=== PATIENT | female | born 1995 | race Caucasian/White ===

== ENCOUNTER 2017-06-28 19:48 | Emergency (ER) | payer OTHER ==
[~2017-06-28] VITALS: Ht 167.6 cm; Wt 80.0 kg
--- NOTE | 2017-06-28 20:01 | ED.ADGEN ---
Adult General Chief Complaint Chief Complaint " I am vomiting so much.. my stomach hurts.. to point it hurts to take big breaths.. I just feel very distended.. I about 26 weeks... [facility]... I did almost have pre-eclampsia with my lst .. this one was placenta previa.. but it resolved..I just can't hardly keep anything down...".. " I worried I can't feel the baby kicking any more..." HPI HPI Patient is a 21 year old female who presents with nausea, vomiting , abd. pain and gravid x 26 weeks. Pt. states she vomited so many times to day .. that her chest hurts along her flanks. Pt. denies travel,bad food, ill contacts, or trauma. . Pt denies immunosuppression. Pt. has eaten today. Pt. called her mid level provider and they wanted her checked out for pre-eclampsia. Pt. with [facility] specialist clinic at [facility]. No vaginal discharge. Review of Systems Review of Systems Constitutional: Denies fever or chills [] Eyes: Denies change in visual acuity, redness, or eye pain [] HENT: Denies nasal congestion or sore throat [] Respiratory: Denies cough or shortness of breath [] Cardiovascular: No additional information not addressed in HPI [] GI: complaints of abdominal pain, nausea, vomiting. Denies, bloody stools or diarrhea [] : Denies dysuria or hematuria [] Musculoskeletal: Denies back pain or joint pain [] Integument: Denies rash or skin lesions [] Neurologic: Denies headache, focal weakness or sensory changes [] Endocrine: Denies polyuria or polydipsia [] All other systems were reviewed and found to be within normal limits, except as documented in this note. Family History Family History Non-contributory Current Medications Current Medications Current Medications Medications (Trade) Dose Ordered Sig/Margarette Start Time Stop Time Status Last Admin Dose Admin Famotidine (Pepcid Vial) 20 mg 1X ONCE 06/28/17 20:15 06/28/17 20:16 DC 06/28/17 21:22 20 MG Lactated Ringer's 1,000 ml @ 1,000 mls/hr 1X ONCE 06/28/17 22:00 06/28/17 22:59 DC 06/28/17 22:00 1,000 MLS/HR Magnesium Sulfate 50 ml @ 25 mls/hr 1X ONCE 06/28/17 20:15 06/28/17 22:14 DC 06/28/17 21:19 25 MLS/HR Ondansetron HCl (Zofran Odt) 8 mg 1X ONCE 06/28/17 20:15 06/28/17 20:16 DC Oxycodone/ Acetaminophen (Percocet 5/325) 1 tab 1X ONCE 06/28/17 20:15 06/28/17 20:16 DC 06/28/17 21:21 1 TAB Allergies Allergies Allergies Coded Allergies Type Severity Reaction Last Updated Verified No Known Drug Allergies 06/28/17 No Physical Exam Physical Exam Constitutional: Well developed, well nourished,moderately acute distress, non- toxic appearance. [] HENT: Normocephalic, atraumatic, bilateral external ears normal, oropharynx dry , no oral exudates, nose normal. [] Eyes: PERRLA, EOMI, conjunctiva normal, no discharge. [] Neck: Normal range of motion, no tenderness, supple, no stridor. [] Cardiovascular:Heart rate regular rhythm, no murmur [] Lungs & Thorax: Bilateral breath sounds clear to auscultation [] Abdomen: Bowel sounds normal, soft, no tenderness, no masses, no pulsatile masses. [] FHR 140's Skin: Warm, dry, no erythema, no rash. [] Back: No tenderness, no CVA tenderness. [] Extremities: No tenderness, no cyanosis, no clubbing, ROM intact, no edema. [] Neurologic: Alert and oriented X 3, normal motor function, normal sensory function, no focal deficits noted. []DTR + 2 patella. Psychologic: Affect anxious, judgement normal, mood normal. [] Current Patient Data Vital Signs Vital Signs Date Time Temp Pulse Resp B/P (MAP) Pulse Ox O2 Delivery O2 Flow Rate FiO2 06/28/17 23:13 89 18 134/73 (93) 98 Room Air 06/28/17 22:18 98.3 Lab Results Laboratory Tests Test 06/28/17 20:44 06/28/17 20:50 06/28/17 21:32 White Blood Count 10.5 x10^3/uL (4.0-11.0) Red Blood Count 3.94 x10^6/uL (3.50-5.40) Hemoglobin 12.2 g/dL (12.0-15.5) Hematocrit 34.6 % (36.0-47.0) L Mean Corpuscular Volume 88 fL (79-100) Mean Corpuscular Hemoglobin 31 pg (25-35) Mean Corpuscular Hemoglobin Concent 35 g/dL (31-37) Red Cell Distribution Width 12.8 % (11.5-14.5) Platelet Count 168 x10^3/uL (140-400) Neutrophils (%) (Auto) 71 % (31-73) Lymphocytes (%) (Auto) 19 % (24-48) L Monocytes (%) (Auto) 6 % (0-9) Eosinophils (%) (Auto) 4 % (0-3) H Basophils (%) (Auto) 0 % (0-3) Neutrophils # (Auto) 7.5 x10^3uL (1.8-7.7) Lymphocytes # (Auto) 2.0 x10^3/uL (1.0-4.8) Monocytes # (Auto) 0.6 x10^3/uL (0.0-1.1) Eosinophils # (Auto) 0.4 x10^3/uL (0.0-0.7) Basophils # (Auto) 0.0 x10^3/uL (0.0-0.2) Prothrombin Time 9.3 SEC (9.4-11.4) L Prothrombin Time INR 0.9 (0.9-1.1) PTT 24 SEC (23-33) Maternal Serum HCG Beta Subunit 4927 mIU/mL (0-6) H Troponin I Quantitative < 0.017 ng/mL (0-0.055) POC Urine HCG, Qualitative hcg positive (Negative) Urine Collection Type Unknown Urine Color Yellow Urine Clarity Clear Urine pH 5.5 Urine Specific [place] >=1.030 Urine Protein Neg (NEG-TRACE) Urine Glucose (UA) 100 mg/dL (NEG) Urine Ketones (Stick) Trace mg/dL (NEG) Urine Blood Neg (NEG) Urine Nitrite Neg (NEG) Urine Bilirubin Neg (NEG) Urine Urobilinogen Dipstick 0.2 mg/dL (0.2 mg/dL) Urine Leukocyte Esterase Neg (NEG) Urine RBC 0 /HPF (0-2) Urine WBC Occ /HPF (0-4) Urine Squamous Epithelial Cells Occ /LPF Urine Bacteria 0 /HPF (0-FEW) Urine Opiates Screen Neg (NEG) Urine Methadone Screen Neg (NEG) Urine Barbiturates Neg (NEG) Urine Phencyclidine Screen Neg (NEG) Urine Amphetamine/Methamphetamine Neg (NEG) Urine Benzodiazepines Screen Neg (NEG) Urine Cocaine Screen Neg (NEG) Urine Cannabinoids Screen Neg (NEG) Urine Ethyl Alcohol (NEG) EKG EKG [] Radiology/Procedures Radiology/Procedures US - IUP, no acute, FHR 140, 27w.4d[] SULEMAN 09/23/17. Active Course & Med Decision Making Course & Med Decision Making Pertinent Labs and Imaging studies reviewed. (See chart for details) Still awaiting electrolytes- I stat ordered 2100 Pt. refused eval. pulmonary cause of chest wall discomfort. Exhibit UCAR capacity. Aware of risks missed pulmonary causes, PE, ect. Pt. to push clear fluids. Take Reglan 5 to 10 with Benadryl 25 mg up 4 x day for severe nausea and vomiting. ( Reports allergy to Zofran.). Pt. may take tylenol for pain. Ave products may be helpful. Must follow up labs here with primary. Continue thuy. [] Final Impression Final Impression 1. [Hyper emesis gravidarum] 2. Mild dehydration 3. BHCG= 4927 4. A+ blood type 5. IUP 27w:4d by US- SULEMAN 09/23/2017 Problems: Dragon Disclaimer Dragon Disclaimer This electronic medical record was generated, in whole or in part, using a voice recognition dictation system. ROSE DOBBINS MD June 28, 2017 20:01
[2017-06-28] MEDS ORDERED: FAMOTIDINE 20 MG/2 ML VIAL IVP ONE (20:15)
[2017-06-28] MEDS ORDERED: ONDANSETRON ODT 4 MG TAB.RAPDIS PO ONE (20:15)
[2017-06-28] MEDS ORDERED: MAGNESIUM SULFATE 2GM 50 ML IV ONE (20:15)
[2017-06-28] MEDS ORDERED: oxyCODONE/APAP 5/325 1 TAB TABLET PO ONE (20:15)
[2017-06-28] MEDS ORDERED: IV RINGERS SOLUTION,LACTATED 1,000 ML IV SCH (20:15)
--- NOTE | 2017-06-28 20:17 | EKG ---
[address] [address] Test Date: 2017-06-28 Test Time: 20:13:23 Pat Name: DILSHAD STUBBS Department: Room: Gender: F Shank Pinner: ABBEY : 1995 Requested By: ROSE DOBBINS Order Number: [id number] Reading MD: Roshan Mercado MD Measurements Intervals [place] Rate: 91 P: 38 NE: 142 QRS: 21 QRSD: 80 T: 11 QT: 344 QTc: 425 Interpretive Statements SINUS RHYTHM Electronically Signed On 06-29-2017 13:14:29 CDT by Roshan Mercado MD
--- NOTE | 2017-06-28 21:21 | RAD ---
Obstetrical ultrasound limited HISTORY: Nausea and vomiting, pressure and cramping, COMPARISON: None FINDINGS: Multiple transabdominal sonographic images of the uterus are submitted. There is a single intrauterine fetus, cephalic presentation. Amniotic fluid volume is within normal limits, estimated SARATH 13.2 cm. heart rate 1 40 bpm. Extends not evaluated anatomy. Cervix measured 4.3 cm. movement was noted. There is posterior placenta. No free fluid is demonstrated. Maternal adnexal regions are not demonstrated. Biometry data are as follows: Biparietal diameter 6.76 cm corresponds with 27 weeks 2 days, 67 percentile Head circumference 25.49 cm corresponds with 27 weeks 5 days, 67th percentile Abdominal circumference 22.29 cm corresponds with 26 weeks 5 days, 50 percentile Femur length 5.44 cm corresponds with 20 weeks 5 days, 93rd percentile HC/AC ratio 1.14 Estimated weight 1092 g +/- 162g Adjusted ultrasound age 27 weeks 4 days, estimated date of delivery date of 09/23/2017. LMP age 26 weeks 3 days with estimated delivery date of 10/01/2017. IMPRESSION: 1. There is a single viable intrauterine fetus in cephalic presentation. Adjusted ultrasound age is 27 weeks 4 days with estimated delivery date by ultrasound 09/23/2017. Electronically signed by: Haris Harris MD (06/28/2017 9:18 PM) [facility]
[2017-06-28 21:25] LABS: BASO % 0 % (0-3); EOS # 0.4 x10^3/uL (0.0-0.7); EOS % 4 % (0-3); HEMATOCRIT 34.6 % (36.0-47.0); HEMOGLOBIN 12.2 g/dL (12.0-15.5); LYMPH % 19 % (24-48); MEAN CORPUSCULAR HEMOGLOBIN 31 pg (25-35); MEAN CORPUSCULAR HGB CONC 35 g/dL (31-37); MEAN CORPUSCULAR VOLUME 88 fL (79-100); MONO # 0.6 x10^3/uL (0.0-1.1); MONO % 6 % (0-9); NEUT # 7.5 x10^3uL (1.8-7.7); NEUT % 71 % (31-73); PLATELET COUNT 168 x10^3/uL (140-400); RED BLOOD COUNT 3.94 x10^6/uL (3.50-5.40); RED CELL DISTRIBUTION WIDTH 12.8 % (11.5-14.5); WHITE BLOOD COUNT 10.5 x10^3/uL (4.0-11.0)
[2017-06-28] MEDS ORDERED: IV RINGERS SOLUTION,LACTATED 1,000 ML IV ONE (22:00)
[2017-06-28 22:37] LABS: BILIRUBIN,URINE NEG (NEG); CLARITY,URINE CLEAR; COLOR,URINE YELLOW; GLUCOSE,URINE 100 mg/dL (NEG)
[2017-06-28 22:38] LABS: BACTERIA,URINE 0 /HPF (0-FEW); NITRITE,URINE NEG (NEG); RBC,URINE 0 /HPF (0-2); SQUAMOUS EPITHELIAL CELL,UR OCC /LPF; UROBILINOGEN,URINE 0.2 mg/dL (0.2 mg/dL); WBC,URINE OCC /HPF (0-4)
[2017-06-28 23:13] VITALS: BP 134/73
[2017-06-28] MEDS ORDERED: METO10TA81 PO (23:17)
[2017-06-28 23:43] LABS: AMPHETAMINE/METHAMPHETAMINE NEG (NEG); BARBITURATES NEG (NEG); BENZODIAZEPINES NEG (NEG); CANNABINOIDS NEG (NEG); COCAINE NEG (NEG); METHADONE NEG (NEG); OPIATES NEG (NEG); PHENCYCLIDINE NEG (NEG)
[2017-06-29 01:07] LABS: ALBUMIN 3.6 g/dL (3.4-5.0); BLOOD UREA NITROGEN 5 mg/dL (7-20); CALCIUM 8.8 mg/dL (8.5-10.1); CREATININE 0.5 mg/dL (0.6-1.0); GFR 158.9; GLUCOSE 102 mg/dL (70-99); TOTAL BILIRUBIN 0.3 mg/dL (0.2-1.0); TOTAL PROTEIN 6.8 g/dL (6.4-8.2)
[2017-06-29 01:08] LABS: ALK PHOS 83 U/L (46-116); ALT (SGPT) 12 U/L (14-59); ANION GAP 9 (6-14); AST (SGOT) 10 U/L (15-37); CARBON DIOXIDE 19 mmol/L (21-32); CHLORIDE 111 mmol/L (98-107); DIRECT BILIRUBIN < 0.1 mg/dL (0.0-0.2); POTASSIUM 3.8 mmol/L (3.5-5.1); SODIUM 139 mmol/L (136-145)
[2017-06-29 01:09] LABS: LIPASE 115 U/L (73-393)
== END 2017-06-28 23:25 | disposition home or self-care (01) ==
LOC: ER 19:48
DX: O21.0 Mild hyperemesis gravidarum (principal); O99.282 Endocrine, nutritional and metabolic diseases complicating pregnancy, second trimester; E86.0 Dehydration; Z3A.27 27 weeks gestation of pregnancy
CPT/HCPCS: 36415; 76815; 80048; 80076; 80307; 81001; 81025; 83690; 84484; 84702; 85025; 85610; 85730; 86900; 86901; 93005; 96365; 96375; 99285; J3475; J7120; S0028; 96366; G0479

== ENCOUNTER 2018-12-18 19:34 | Emergency (ER) | payer MEDICAID, OTHER ==
[~2018-12-18] VITALS: Ht 167.6 cm; Wt 85.7 kg
[~2018-12-18 19:34] MED LIST: METO10TA81 PO
[2018-12-18] MEDS ORDERED: IV RINGERS SOLUTION,LACTATED 1,000 ML IV SCH (20:07)
--- NOTE | 2018-12-18 20:07 | ED.ADGEN ---
Past History Past Medical History: Other Past Medical History History of eclampsia with pregnancies Past Surgical History: No Surgical History Alcohol Use: None Drug Use: None Adult General Chief Complaint Chief Complaint ".. I ve been having some generalized abdomen pain... it not like delivery pain.. just constant ache.. I am at 34 weeks.. and due on Jan 27... And this is my third .. ".." I am worried .. because I have less movement... and still got this back ache... they had to induce my prior deliveries because of eclampsia.. " HPI HPI Patient is a 23 year old female who presents with generalized abd. pain and is currently at 34 weeks and 0 days with intrauterine . Patient states she has felt less movements the last 24 hours has become concerns. Patient states previous ultrasounds with this shows placenta with short umbilicus cord. Patient currently follows with [facility]. Patient is gravid 3 term 2. The 2 previous pregnancies patient developed eclampsia and hypertension. Both pregnancies required early induction because of the eclampsia. She denies any trauma. Patient denies any specific ill contacts. No history of travel or significant ill contacts. Patient denies any bleeding or premature rupture of fluids. Patient's reports the pain was somewhat generalized and also has some low back pain. Patient denies any consistent contractions. Patient denies any prior history of STDs. Patient does have follow-up of her NPH tomorrow. Patient has been compliant with her vitamins. Review of Systems Review of Systems Constitutional: Denies fever or chills [] Eyes: Denies change in visual acuity, redness, or eye pain [] HENT: Denies nasal congestion or sore throat [] Respiratory: Denies cough or shortness of breath [] Cardiovascular: No additional information not addressed in HPI [] GI: Complaints of generalized abdominal pain, nausea. Denies, vomiting, bloody stools or diarrhea [] : Denies dysuria or hematuria [] Musculoskeletal: Denies back pain or joint pain [] Integument: Denies rash or skin lesions [] Neurologic: Denies headache, focal weakness or sensory changes [] Endocrine: Denies polyuria or polydipsia [] All other systems were reviewed and found to be within normal limits, except as documented in this note. Family History Family History Noncontributory Current Medications Current Medications Current Medications Medications (Trade) Dose Ordered Sig/Margarette Start Time Stop Time Status Last Admin Dose Admin Acetaminophen (Tylenol) 1,000 mg 1X ONCE 12/18/18 23:00 12/18/18 23:01 DC 12/18/18 22:50 1,000 MG Acetaminophen/ Hydrocodone Bitart (Lortab 5/325) 2 tab 1X ONCE 12/18/18 20:15 12/18/18 20:16 DC Lactated Ringer's 1,000 ml @ 1,000 mls/hr Q1H 12/18/18 20:07 12/18/18 21:06 DC 12/18/18 20:00 1,000 MLS/HR See nursing for home meds Allergies Allergies Allergies Coded Allergies Type Severity Reaction Last Updated Verified No Known Drug Allergies 06/28/17 No Physical Exam Physical Exam Constitutional: Mild distress, non-toxic appearance. [] HENT: Normocephalic, atraumatic, bilateral external ears normal, oropharynx moist, no oral exudates, nose normal. [] Eyes: PERRLA, EOMI, conjunctiva normal, no discharge. [] Neck: Normal range of motion, no tenderness, supple, no stridor. [] Cardiovascular:Heart rate regular rhythm, no murmur [] Lungs & Thorax: Bilateral breath sounds equal at apex on auscultation [] Abdomen: Bowel sounds normal, soft, mild generalized tenderness, no masses, no pulsatile masses. movements detected. heart rate approximately 140 to 150. Vaginal exam shows no obvious discharge or bleeding. Os is not dilated. There is no effacement. Obese. No uterine contractions noted during evaluation. Skin: Warm, dry, no erythema, no rash. [] Back: No tenderness, no CVA tenderness. [] Extremities: No tenderness, no cyanosis, no clubbing, ROM intact, mild ankle edema. [] Neurologic: Alert and oriented X 3, normal motor function, normal sensory function, no focal deficits noted. []DTR is +2 at patella and brachial Psychologic: Affect anxious, judgement normal, mood normal. [] Current Patient Data Vital Signs Vital Signs Date Time Temp Pulse Resp B/P (MAP) Pulse Ox O2 Delivery O2 Flow Rate FiO2 12/18/18 22:44 87 22 119/71 (87) 100 Room Air 12/18/18 19:37 98.9 Lab Results Laboratory Tests Test 12/18/18 19:55 12/18/18 21:10 White Blood Count 9.1 x10^3/uL (4.0-11.0) Red Blood Count 4.10 x10^6/uL (3.50-5.40) Hemoglobin 12.1 g/dL (12.0-15.5) Hematocrit 35.6 % (36.0-47.0) L Mean Corpuscular Volume 87 fL (79-100) Mean Corpuscular Hemoglobin 29 pg (25-35) Mean Corpuscular Hemoglobin Concent 34 g/dL (31-37) Red Cell Distribution Width 14.3 % (11.5-14.5) Platelet Count 136 x10^3/uL (140-400) L Neutrophils (%) (Auto) 71 % (31-73) Lymphocytes (%) (Auto) 21 % (24-48) L Monocytes (%) (Auto) 7 % (0-9) Eosinophils (%) (Auto) 1 % (0-3) Basophils (%) (Auto) 0 % (0-3) Neutrophils # (Auto) 6.5 x10^3uL (1.8-7.7) Lymphocytes # (Auto) 1.9 x10^3/uL (1.0-4.8) Monocytes # (Auto) 0.6 x10^3/uL (0.0-1.1) Eosinophils # (Auto) 0.1 x10^3/uL (0.0-0.7) Basophils # (Auto) 0.0 x10^3/uL (0.0-0.2) Prothrombin Time < 9.3 SEC (9.4-11.4) L Prothrombin Time INR 0.9 (0.9-1.1) Activated Partial Thromboplast Time 24 SEC (23-33) Maternal Serum HCG Beta Subunit 08042 mIU/mL (0-6) H Sodium Level 138 mmol/L (136-145) Potassium Level 3.8 mmol/L (3.5-5.1) Chloride Level 103 mmol/L (98-107) Carbon Dioxide Level 25 mmol/L (21-32) Anion Gap 10 (6-14) Blood Urea Nitrogen 4 mg/dL (7-20) L Creatinine 0.6 mg/dL (0.6-1.0) Estimated GFR (Cockcroft-Gault) 126.2 Glucose Level 78 mg/dL (70-99) Calcium Level 8.3 mg/dL (8.5-10.1) L Magnesium Level 1.9 mg/dL (1.8-2.4) Total Bilirubin 0.2 mg/dL (0.2-1.0) Direct Bilirubin 0.1 mg/dL (0.0-0.2) Aspartate Amino Transferase (AST) 13 U/L (15-37) L Alanine Aminotransferase (ALT) 10 U/L (14-59) L Alkaline Phosphatase 128 U/L (46-116) H Total Protein 6.7 g/dL (6.4-8.2) Albumin 2.9 g/dL (3.4-5.0) L Lipase 146 U/L (73-393) Urine Collection Type Unknown Urine Color Yellow Urine Clarity Hazy Urine pH 6.5 Urine Specific [place] 1.020 Urine Protein 30 mg/dl (NEG-TRACE) Urine Glucose (UA) Neg mg/dL (NEG) Urine Ketones (Stick) Neg mg/dL (NEG) Urine Blood Trace (NEG) Urine Nitrite Neg (NEG) Urine Bilirubin Neg (NEG) Urine Urobilinogen Dipstick 0.2 mg/dL (0.2 mg/dL) Urine Leukocyte Esterase Small (NEG) Urine RBC Occ /HPF (0-2) Urine WBC 5-10 /HPF (0-4) Urine Squamous Epithelial Cells Occ /LPF Urine Bacteria 0 /HPF (0-FEW) Urine Mucus Mod /LPF Urine Yeast Present /HPF Urine Opiates Screen Neg (NEG) Urine Methadone Screen Neg (NEG) Urine Barbiturates Neg (NEG) Urine Phencyclidine Screen Neg (NEG) Urine Amphetamine/Methamphetamine Neg (NEG) Urine Benzodiazepines Screen Neg (NEG) Urine Cocaine Screen Neg (NEG) Urine Cannabinoids Screen Neg (NEG) Urine Ethyl Alcohol Neg (NEG) EKG EKG [] Radiology/Procedures Radiology/Procedures [][address] [address] [address] IMAGING REPORT Signed PATIENT: DILSHAD STUBBS ACCOUNT: [id number] : 1995 LOCATION: ER AGE: 23 SEX: F EXAM STATUS: PRE ER ORD. PHYSICIAN: ROSE DOBBINS MD REASON: Abd. pain 34 wk G 3, hx prior eclampsia, EDC Jan.27, prior teo PROCEDURE: OB LIMITED INDICATION: Abdomen pain in COMPARISON: None. FINDINGS: Focused transabdominal ultrasound images are obtained through the uterus. Please note that this is only a limited examination with the majority of anatomy not visualized. Vertex presentation at time of exam. Cervix is largely obscured. Head circumference 310 mm, 34 week 5 day Biparietal diameter 84 mm, 33 week 5 day Abdominal circumference 297 mm, 33 week 5 day Femur length 67 mm, 34 week 4 day Estimated weight 2337 g, 41st percentile Estimated gestational age 34 weeks and 1 day heartbeat 149. Placenta anterior. IMPRESSION: * Intrauterine is identified with estimated gestational age of 34 weeks and 1 day. Positive heartbeat. Electronically signed by: Aakash Galdamez MD (12/18/2018 9:20 PM) [facility] DICTATED AND SIGNED BY: AAKASH GALDAMEZ MD DATE: 12/18/182119 CC: ROSE DOBBINS MD; KAREN JEFFERSON MD ~ IMAGING REPORT Signed PATIENT: IDLSHAD STUBBS ACCOUNT: [id number] : 1995 LOCATION: ER AGE: 23 SEX: F EXAM STATUS: PRE ER ORD. PHYSICIAN: ROSE DOBBINS MD REASON: Abd. pain 34 wk G 3, hx prior eclampsia, EDC Jan.27, prior teo PROCEDURE: OB LIMITED INDICATION: Abdomen pain in COMPARISON: None. FINDINGS: Focused transabdominal ultrasound images are obtained through the uterus. Please note that this is only a limited examination with the majority of anatomy not visualized. Vertex presentation at time of exam. Cervix is largely obscured. Head circumference 310 mm, 34 week 5 day Biparietal diameter 84 mm, 33 week 5 day Abdominal circumference 297 mm, 33 week 5 day Femur length 67 mm, 34 week 4 day Estimated weight 2337 g, 41st percentile Estimated gestational age 34 weeks and 1 day heartbeat 149. Placenta anterior. IMPRESSION: * Intrauterine is identified with estimated gestational age of 34 weeks and 1 day. Positive heartbeat. Electronically signed by: Aakash Galdamez MD (12/18/2018 9:20 PM) [facility] DICTATED AND SIGNED BY: AAKASH GALDAMEZ MD DATE: 12/18/182119 CC: ROSE DOBBINS MD; KAREN JEFFERSON MD ~ Course & Med Decision Making Course & Med Decision Making Pertinent Labs and Imaging studies reviewed. (See chart for details) Patient follow-up pending cultures. Patient follow-up primary care in the morning.. Patient was issued a disc of current ultrasound tonight. Patient to continue her vitamins. Patient take Tylenol as needed for marked discomfort. Patient to monitor her blood pressures closely. No current depending findings of eclampsia. [] Final Impression Final Impression 1. Abdomen Pain 2. IUP 34 weeks -0 days Est[] US tonight 34w l day 3. Blood type A+ 4. Platelets 136 5. Alkaline phosphatase 128 6. Beta hCG 18,937 Dragon Disclaimer Dragon Disclaimer This electronic medical record was generated, in whole or in part, using a voice recognition dictation system. Dragon Disclaimer This chart was dictated in whole or in part using Voice Recognition software in a busy, high-work load, and often noisy Emergency Department environment. It may contain unintended and wholly unrecognized errors or omissions. ROSE DOBBINS MD Dec 18, 2018 20:07
[2018-12-18] MEDS ORDERED: HYDROcodone/APAP 5/325MG 1 TAB TABLET PO ONE (20:15)
[2018-12-18 20:25] LABS: BASO % 0 % (0-3); EOS # 0.1 x10^3/uL (0.0-0.7); EOS % 1 % (0-3); HEMATOCRIT 35.6 % (36.0-47.0); HEMOGLOBIN 12.1 g/dL (12.0-15.5); LYMPH # 1.9 x10^3/uL (1.0-4.8); LYMPH % 21 % (24-48); MEAN CORPUSCULAR HEMOGLOBIN 29 pg (25-35); MEAN CORPUSCULAR HGB CONC 34 g/dL (31-37); MEAN CORPUSCULAR VOLUME 87 fL (79-100); MONO # 0.6 x10^3/uL (0.0-1.1); MONO % 7 % (0-9); NEUT # 6.5 x10^3uL (1.8-7.7); NEUT % 71 % (31-73); PLATELET COUNT 136 x10^3/uL (140-400); RED CELL DISTRIBUTION WIDTH 14.3 % (11.5-14.5); WHITE BLOOD COUNT 9.1 x10^3/uL (4.0-11.0)
[2018-12-18 20:33] LABS: ALBUMIN 2.9 g/dL (3.4-5.0); CALCIUM 8.3 mg/dL (8.5-10.1); CREATININE 0.6 mg/dL (0.6-1.0); DIRECT BILIRUBIN 0.1 mg/dL (0.0-0.2); GFR 126.2; MAGNESIUM 1.9 mg/dL (1.8-2.4); POTASSIUM 3.8 mmol/L (3.5-5.1); TOTAL BILIRUBIN 0.2 mg/dL (0.2-1.0); TOTAL PROTEIN 6.7 g/dL (6.4-8.2)
--- NOTE | 2018-12-18 21:23 | RAD ---
INDICATION: Abdomen pain in COMPARISON: None. FINDINGS: Focused transabdominal ultrasound images are obtained through the uterus. Please note that this is only a limited examination with the majority of anatomy not visualized. Vertex presentation at time of exam. Cervix is largely obscured. Head circumference 310 mm, 34 week 5 day Biparietal diameter 84 mm, 33 week 5 day Abdominal circumference 297 mm, 33 week 5 day Femur length 67 mm, 34 week 4 day Estimated weight 2337 g, 41st percentile Estimated gestational age 34 weeks and 1 day heartbeat 149. Placenta anterior. IMPRESSION: * Intrauterine is identified with estimated gestational age of 34 weeks and 1 day. Positive heartbeat. Electronically signed by: Tony Zurita MD (12/18/2018 9:20 PM) [facility]
[2018-12-18 21:57] LABS: BARBITURATES NEG (NEG); BENZODIAZEPINES NEG (NEG); CANNABINOIDS NEG (NEG); COCAINE NEG (NEG); METHADONE NEG (NEG); OPIATES NEG (NEG); PHENCYCLIDINE NEG (NEG)
[2018-12-18 22:00] LABS: AMPHETAMINE/METHAMPHETAMINE NEG (NEG)
[2018-12-18 22:44] VITALS: BP 119/71
[2018-12-18 22:50] LABS: BACTERIA,URINE 0 /HPF (0-FEW); BILIRUBIN,URINE NEG (NEG); CLARITY,URINE HAZY; COLOR,URINE YELLOW; GLUCOSE,URINE NEG (NEG); NITRITE,URINE NEG (NEG); RBC,URINE OCC /HPF (0-2); SQUAMOUS EPITHELIAL CELL,UR OCC /LPF; UROBILINOGEN,URINE 0.2 mg/dL (0.2 mg/dL); YEAST,URINE PRESENT /HPF
[2018-12-18] MEDS ORDERED: ACETAMINOPHEN 500 MG TABLET PO ONE (23:00)
[2018-12-20 19:08] LABS: CHLAMYDIA PROBE Negative (Negative)
== END 2018-12-18 23:04 | disposition home or self-care (01) ==
LOC: ER 19:34
DX: O26.893 Other specified pregnancy related conditions, third trimester (principal); R10.84 Generalized abdominal pain; M54.5 Low back pain; Z3A.34 34 weeks gestation of pregnancy
CPT/HCPCS: 36415; 76815; 80048; 80076; 80307; 81001; 83690; 83735; 84443; 84702; 85025; 85610; 85730; 86592; 86703; 86705; 86709; 86803; 86900; 86901; 87086; 87340; 87491; 87591; 99285; J7120